=== PATIENT | female | born 1975 | race Caucasian/White ===

== ENCOUNTER 2017-05-01 16:19 | Emergency (ER) | payer MEDICARE, MEDICAID ==
[2017-05-01] MEDS ORDERED: methylPREDNISolone Sod Succ/PF 125 MG/2 ML VIAL ONE (16:35)
== END 2017-05-01 17:15 | disposition home or self-care (01) ==
LOC: MADERS 16:19
DX: J20.9 Acute bronchitis, unspecified (principal); E03.9 Hypothyroidism, unspecified; E78.5 Hyperlipidemia, unspecified; F17.210 Nicotine dependence, cigarettes, uncomplicated; Z79.899 Other long term (current) drug therapy
CPT/HCPCS: 87804; 96372; J2930; J7620

== ENCOUNTER 2017-10-19 14:25 | Emergency (ER) | payer MEDICARE, MEDICAID ==
[2017-10-19] MEDS ORDERED: Clindamycin 150 MG CAP ONE (15:01)
[2017-10-19] MEDS ORDERED: HYDROcodone/Acetaminophen 5/325 mg Tablet ONE (15:01)
== END 2017-10-19 15:10 | disposition home or self-care (01) ==
LOC: MADERS 14:25
DX: L03.314 Cellulitis of groin (principal); E03.9 Hypothyroidism, unspecified; E78.5 Hyperlipidemia, unspecified; G35 Multiple sclerosis; F17.210 Nicotine dependence, cigarettes, uncomplicated; Z79.899 Other long term (current) drug therapy
CPT/HCPCS: 99283

== ENCOUNTER 2017-11-12 14:34 | Emergency (ER) | payer MEDICARE, MEDICAID | END 2017-11-12 15:19 | disposition home or self-care (01) | LOC: MADERS 14:34 | DX: T63.461A Toxic effect of venom of wasps, accidental (unintentional), initial encounter (principal); E03.9 Hypothyroidism, unspecified; E78.5 Hyperlipidemia, unspecified; F17.210 Nicotine dependence, cigarettes, uncomplicated; Z79.899 Other long term (current) drug therapy | CPT/HCPCS: 99282 ==

== ENCOUNTER 2017-11-23 14:43 | Emergency (ER) | payer MEDICARE, MEDICAID ==
[2017-11-23] MEDS ORDERED: Dexamethasone 4 MG TAB ONE (15:35)
== END 2017-11-23 16:07 | disposition home or self-care (01) ==
LOC: MADERS 14:43
DX: L25.5 Unspecified contact dermatitis due to plants, except food (principal); E03.9 Hypothyroidism, unspecified; E78.5 Hyperlipidemia, unspecified; F17.210 Nicotine dependence, cigarettes, uncomplicated
CPT/HCPCS: 99282; J8540

== ENCOUNTER 2018-05-10 18:11 | Emergency (ER) | payer MEDICAID, MEDICARE | END 2018-05-10 18:45 | disposition home or self-care (01) | LOC: MADERS 18:11 | DX: B34.9 Viral infection, unspecified (principal); E03.9 Hypothyroidism, unspecified; F90.9 Attention-deficit hyperactivity disorder, unspecified type; F17.210 Nicotine dependence, cigarettes, uncomplicated; Z79.899 Other long term (current) drug therapy; E78.00 Pure hypercholesterolemia, unspecified | CPT/HCPCS: 99281 ==

== ENCOUNTER 2018-09-05 18:05 | Emergency (ER) | payer MEDICARE, MEDICAID ==
--- NOTE | 2018-09-05 18:50 | RAD ---
Exam: XR Finger(s) Lt Min 2 View HISTORY: Injury to distal fifth left finger COMPARISON: None FINDINGS: There is soft tissue irregularity seen involving the volar aspect distal left small finger suggesting laceration. No radiopaque foreign body is seen. No acute fracture, dislocation, or other acute osseous abnormality is identified. IMPRESSION: 1. Soft tissue laceration volar aspect distal left small finger. 2. No acute osseous abnormality is identified.
[2018-09-05] MEDS ORDERED: Cephalexin 500 MG CAP ONE (18:52)
[2018-09-05] MEDS ORDERED: Bacitracin Zinc 1 Packet ONE (18:52)
[2018-09-05] MEDS ORDERED: Adacel (T-DAP) 0.5 ML SYRINGE ONE (18:52)
[2018-09-05] MEDS ORDERED: HYDROcodone/Acetaminophen 5/325 mg Tablet ONE (18:52)
== END 2018-09-05 19:12 | disposition home or self-care (01) ==
LOC: MADERS 18:05
DX: S61.217A Laceration without foreign body of left little finger without damage to nail, initial encounter (principal); F90.9 Attention-deficit hyperactivity disorder, unspecified type; F17.210 Nicotine dependence, cigarettes, uncomplicated; W26.8XXA Contact with other sharp object(s), not elsewhere classified, initial encounter
CPT/HCPCS: 12001; 90471; 90715

== ENCOUNTER 2018-12-12 17:32 | Emergency (ER) | payer MEDICARE, MEDICAID | END 2018-12-12 18:20 | disposition home or self-care (01) | LOC: MADERS 17:32 | DX: Z00.00 Encounter for general adult medical examination without abnormal findings (principal); E03.9 Hypothyroidism, unspecified; E78.5 Hyperlipidemia, unspecified; F90.9 Attention-deficit hyperactivity disorder, unspecified type; F17.210 Nicotine dependence, cigarettes, uncomplicated; Z79.899 Other long term (current) drug therapy | CPT/HCPCS: 99282 ==

== ENCOUNTER 2019-12-19 15:51 | Emergency (ER) | payer MEDICAID, MEDICARE, SELFPAY | END 2019-12-19 16:35 | disposition home or self-care (01) | LOC: MADERS 15:51 | DX: T18.128A Food in esophagus causing other injury, initial encounter (principal); E03.9 Hypothyroidism, unspecified; E78.5 Hyperlipidemia, unspecified; F90.9 Attention-deficit hyperactivity disorder, unspecified type; F17.210 Nicotine dependence, cigarettes, uncomplicated; Z79.899 Other long term (current) drug therapy | CPT/HCPCS: 99283 ==

== ENCOUNTER 2020-02-18 14:19 | Emergency (ER) | payer MEDICARE, SELFPAY | END 2020-02-18 15:02 | disposition home or self-care (01) | LOC: MADERS 14:19 | DX: G35 Multiple sclerosis (principal); E03.9 Hypothyroidism, unspecified; E78.5 Hyperlipidemia, unspecified; F90.9 Attention-deficit hyperactivity disorder, unspecified type; F17.210 Nicotine dependence, cigarettes, uncomplicated | CPT/HCPCS: 99283 ==

== ENCOUNTER 2020-03-01 11:33 | Emergency (ER) | payer MEDICARE | END 2020-03-01 11:51 | disposition home or self-care (01) | LOC: MADERS 11:33 | DX: B00.89 Other herpesviral infection (principal); L03.114 Cellulitis of left upper limb; E03.9 Hypothyroidism, unspecified; E78.5 Hyperlipidemia, unspecified; F90.9 Attention-deficit hyperactivity disorder, unspecified type; F17.210 Nicotine dependence, cigarettes, uncomplicated | CPT/HCPCS: 99283 ==